=== PATIENT | male | born 1980 | race Caucasian/White ===

== ENCOUNTER 2019-12-05 07:49 | Outpatient (CLI) | payer OTHER, SELFPAY ==
[2019-12-05 08:04] LABS: Basophils Absolute Auto 0.04 K/mm3 (0.00-0.10); Basophils Percent Auto 0.4 % (0.0-1.0); Eosinophils Absolute Auto 0.21 K/mm3 (0.02-0.50); Eosinophils Percent Auto 2.3 % (1.0-6.0); Hematocrit 48.1 % (40.0-54.0); Hemoglobin 17.3 g/dL (14.0-18.0); Immature Granulocyte Absolute 0.09 K/mm3 (0.00-0.00); Lymphocytes Percent Auto 34.6 % (18.0-42.0); Mean Corpuscular Hemoglobin 33.5 pg (27.0-31.0); Mean Platelet Volume 10.8 fl (8.7-11.0); Monocytes Absolute Auto 0.83 K/mm3 (0.10-0.90); Neutrophils Absolute Auto 4.9 K/mm3 (1.7-7.2); Neutrophils Percent Auto 52.7 % (50.0-70.0); Platelet Count Result 158 K/mm3 (150-420); Red Blood Count 5.17 M/mm3 (4.70-6.10); Red Cell Distribution Width 11.1 % (11.6-14.4); White Blood Count 9.2 K/mm3 (4.8-10.8)
[2019-12-05 08:17] LABS: Hemoglobin A1C 9.1 % (<5.7)
[2019-12-05 08:22] LABS: Creatinine Urine 92.06 mg/dL (40-278); MALB Creatinine Ratio 213.6 mg/g (0-30); Microalbumin Urine Random 196.7 mg/L
[2019-12-05 09:42] LABS: Alanine Aminotransferase 65 U/L (16-63); Albumin Level 3.7 g/dL (3.4-5.0); Alkaline Phosphatase 90 U/L (46-116); Anion Gap 14.4 mmol/L (7-16); Aspartate Amino Transferase 38 U/L (15-37); Bilirubin,Total 0.4 mg/dL (0.00-1.00); Blood Urea Nitrogen 10 mg/dL (7-18); Calcium 9.3 mg/dL (8.5-10.1); Carbon Dioxide 29 mmol/L (21-32); Chloride 101 mmol/L (98-108); Cholesterol 225 mg/dL (0-200); Estimated Glomerular Filt Rate > 60; Glucose 277 mg/dL (70-99); HDL Direct 32 mg/dL (40-60); LDL Cholesterol Calculated 127 mg/dL (<130); Osmolality Calculated 299 mOsm/kg (285-295); Potassium 4.4 mmol/L (3.5-5.1); Sodium 140 mmol/L (136-145); Total Protein 7.6 g/dL (6.4-8.2); Triglycerides 329 mg/dL (0-150)
== END 2019-12-05 07:50 | disposition home or self-care (01) ==
PROVIDERS: PCP Nurse Practitioner Family; Visit Provider Nurse Practitioner Family
DX: E78.5 Hyperlipidemia, unspecified (principal); E11.59 Type 2 diabetes mellitus with other circulatory complications; I10 Essential (primary) hypertension; E11.69 Type 2 diabetes mellitus with other specified complication
CPT/HCPCS: 36415; 80053; 80061; 82043; 83036; 85025

== ENCOUNTER 2019-12-10 21:45 | Emergency (ER) | payer OTHER, SELFPAY ==
[2019-12-10 22:00] VITALS: BP 162/102; PULSE 81; RESP 16; TEMP 37.1; O2SAT 97
--- NOTE | 2019-12-10 22:03 | ED.GENADULT ---
HPI - General Adult General Chief complaint: Dental/Oral Stated complaint: abcess History of Present Illness HPI narrative: Justin is a 39M with a PMH of DMII, elevated liver enzymes, nicotine dependence, GERD, HTN, HLD and poor dentition with frequent infections that presented to the ED with dental pain. His upper right molars had hurt for a week but they became much worse over the last day and a half. He now cannot stand the pain and cannot eat. He has responded well to clindamycin in the past. No fevers, chills, N/V/D trouble breathing or swallowing. Related Data Home Medications Medication Instructions Recorded Confirmed blood sugar diagnostic #10 each 11/02/19 12/10/19 insulin syringe-needle U-100 0.5 #1 each 11/02/19 12/10/19 mL 30 gauge x 1/2 lancets 33 gauge #100 each 11/15/19 12/10/19 Allergies Allergy/AdvReac Type Severity Reaction Status Date / Time Sulfa (Sulfonamide Allergy Severe Anaphylaxis Verified 11/17/19 10:19 Antibiotics) amlodipine Allergy Mild unknown Verified 11/17/19 10:19 metformin AdvReac Severe abdominal Verified 11/17/19 10:19 pain Sulfonamides Allergy Intermediate anaphylaxis Uncoded 11/17/19 10:19 Review of Systems Constitutional: Constitutional: Reports no additional constitutional complaints, Denies chills and Denies fever(s) Eyes: Eyes: Reports no additional eye complaints ENT: Reports as per HPI Cardiovascular: Cardiovascular: Reports no additional cardiovascular complaints Respiratory: Respiratory: Reports no additional respiratory complaints Gastrointestinal: Gastrointestinal: Reports no additional gastrointestinal complaints Genitourinary: Genitourinary: Reports no additional male genitourinary complaints Musculoskeletal: Musculoskeletal: Reports no additional musculoskeletal complaints Integumentary/Breasts: Skin/Breast: Reports system reviewed and no additional complaints, except as docu Neurologic: Reports system reviewed and no additional complaints, except as documented Psychiatric: Psychiatric: Reports no additional psychiatric complaints Endocrine: Endocrine: Reports no additional endocrine complaints Hematologic/Lymphatic: Hematologic/Lymphatic: Reports no additional hematologic/lymphatic complaints Allergic/Immunologic: Allergic/Immunologic: Reports no additional allergic/immunologic complaints [facility] Past Medical History Medical History Alcohol dependence ESTEFANI (generalized anxiety disorder) GERD without esophagitis Hyperlipidemia associated with type 2 diabetes mellitus Hypertension associated with type 2 diabetes mellitus Microalbuminuria due to type 2 diabetes mellitus Nicotine dependence Obesity (BMI 30-39.9) Type 2 diabetes mellitus Surgical History Surgical History History of ankle surgery Right History of knee surgery Left Knee Tendon Repair Family History Family History Father Benign hypertension Osteoarthritis Mother Acute myocardial infarction Diabetes mellitus Hypothyroidism Hemochromatosis Mother Family history of type 2 diabetes mellitus Acute myocardial infarction Family history of hypothyroidism Father Hypertension Social History Social History Smoking packs per day: 1 Smoking cigarettes per day: 20.0 Years smoked: 15 Smoking pack-years: 15.00 Smoking status: Current every day smoker Tobacco type: cigarettes Alcohol intake: current Substance use: never Substance use type: does not use Additional living arrangements comments: Additional occupation/education comments: [employer] Gender identity (if verbalized by the patient): Male Spiritual care concerns: No Exam Const: General: no acute distress and alert Orientation/co
[2019-12-10] MEDS: CLINDAMYCIN HCL 150 MG CAP 600 MG PO (22:08)
--- NOTE | 2019-12-11 11:17 | PC.NURSE ---
RX CHANGED [facility] THEY DO NOT CARRY 450 MG. CHANGED TO 600 MG
== END 2019-12-10 22:11 | disposition home or self-care (01) ==
PROVIDERS: Emergency Provider Family Medicine; PCP Nurse Practitioner Family
DX: K08.89 Other specified disorders of teeth and supporting structures (principal)
CPT/HCPCS: 99283; A9270

== ENCOUNTER 2021-12-13 07:29 | Outpatient (CLI) | payer OTHER, SELFPAY ==
[2021-12-13 07:40] LABS: Basophils Absolute Auto 0.06 K/mm3 (0.00-0.10); Basophils Percent Auto 0.4 % (0.0-1.0); Eosinophils Absolute Auto 0.37 K/mm3 (0.02-0.50); Eosinophils Percent Auto 2.6 % (1.0-6.0); Hematocrit 47.3 % (40.0-54.0); Hemoglobin 16.6 g/dL (14.0-18.0); Immature Granulocyte Absolute 0.11 K/mm3 (0.00-0.00); Immature Granulocyte Percent A 0.8 % (0.0-0.0); Lymphocytes Absolute Auto 3.84 K/mm3 (1.10-4.50); Lymphocytes Percent Auto 27.5 % (18.0-42.0); Mean Corpuscular HGB Conc 35.1 g/dL (32.0-36.0); Mean Corpuscular Hemoglobin 34.2 pg (27.0-31.0); Mean Corpuscular Volume 97.3 fL (78.0-102.0); Mean Platelet Volume 11.1 fl (8.7-11.0); Monocytes Absolute Auto 0.99 K/mm3 (0.10-0.90); Monocytes Percent Auto 7.1 % (2.0-11.0); Neutrophils Absolute Auto 8.6 K/mm3 (1.7-7.2); Neutrophils Percent Auto 61.6 % (50.0-70.0); Platelet Count Result 165 K/mm3 (150-420); Red Blood Count 4.86 M/mm3 (4.70-6.10); Red Cell Distribution Width 11.5 % (11.6-14.4)
[2021-12-13 08:01] LABS: Hemoglobin A1C 6.9 % (<5.7)
[2021-12-13 08:04] LABS: Alanine Aminotransferase 36 U/L (16-63); Albumin Level 3.9 g/dL (3.4-5.0); Alkaline Phosphatase 88 U/L (46-116); Anion Gap 8 mmol/L (8-16); Aspartate Amino Transferase 19 U/L (15-37); Bilirubin,Total 0.6 mg/dL (0.00-1.00); Blood Urea Nitrogen 17 mg/dL (7-18); Calcium 9.4 mg/dL (8.5-10.1); Carbon Dioxide 29 mmol/L (21-32); Chloride 102 mmol/L (98-108); Cholesterol 216 mg/dL (0-200); Estimated Glomerular Filt Rate > 60; Glucose 132 mg/dL (70-99); HDL Direct 28 mg/dL (40-60); LDL Cholesterol Calculated 111 mg/dL (<130); Osmolality Calculated 291 mOsm/kg (285-295); Potassium 4.1 mmol/L (3.5-5.1); Sodium 139 mmol/L (136-145); Total Protein 8.2 g/dL (6.4-8.2); Triglycerides 387 mg/dL (0-150)
[2021-12-13 08:11] LABS: Creatinine Urine 192.67 mg/dL (40-278)
[2021-12-13 08:15] LABS: MALB Creatinine Ratio 122.4 mg/g (0-30)
[2021-12-17 14:20] LABS: Vitamin D 25 Hydroxy 22 ng/mL (30-100)
== END 2021-12-13 07:30 | disposition home or self-care (01) ==
LOC: CHSLAB 07:30
PROVIDERS: PCP Nurse Practitioner Family; Visit Provider Nurse Practitioner Family
DX: Z79.899 Other long term (current) drug therapy (principal); E11.59 Type 2 diabetes mellitus with other circulatory complications; I10 Essential (primary) hypertension; E78.5 Hyperlipidemia, unspecified
CPT/HCPCS: 36415; 80053; 80061; 82043; 82306; 83036; 85025

== ENCOUNTER 2024-12-29 15:16 | Outpatient (CLI) | payer BC, SELFPAY ==
--- OUTSIDE RECORDS SUMMARY | 2024-12-29 15:19 | XMS_ITS | Clinical Summary ---
Author Organization [facility] Address [facility] [place] [address] Care Team Providers Care Construction Sales Manager Name Role Phone Unavailable Primary Care Provider Unavailabl e Social History Tobacco Use Types Packs/Day Years Used Date Smoking Tobacco: Never Assessed Sex and Gender Information Value Date Recorded Sex Assigned at Not on file Legal Sex Male 1:42 AM CDT Gender Identity Not on file Sexual Orientation Not on file Plan of Treatment Health Maintenance Due Date Last Done Comments Colorectal Cancer Screening Colonoscopy (10 Years) 1978 Annual Physical 1981 Hepatitis C 1996 DTaP, Tdap and Td Vaccines ( 1 - Tdap) 1997 Hepatitis B Vaccines (1 of 3 - 19+ 3-dose series) 1997 COVID-19 Vaccine (2023-2 5 season) 2024 Meningococcal B Vaccine Aged Out No l onger eligible based on patient's age to complete this topic Meningococcal Vaccine Aged Out No courtney malgorzata eligible based on patient's age to complete this topic Pneumococcal Vaccine: Pediat rics (0 to 5 Years) and At-Risk Patients (6 to 49 Years) Aged Out No longer eligible b ased on patient's age to complete this topic RSV Immunizations Under 20 Months Aged Out No longer eligible based on patient's age to complete this topic
[2024-12-29 15:32] LABS: Hematocrit 44.6 % (40.0-54.0); Hemoglobin 15.7 g/dL (14.0-18.0); Immature Granulocyte Percent A 0.6 % (0.0-0.0); Lymphocytes Absolute Auto 3.36 K/mm3 (1.10-4.50); Mean Corpuscular HGB Conc 35.2 g/dL (32-36); Mean Corpuscular Hemoglobin 33.3 pg (27.0-31.0); Mean Corpuscular Volume 94.7 fL (78.0-102.0); Nucleated Red Blood Cells Absolute Auto 0.00 K/mm3 (0.00-0.00); Nucleated Red Blood Cells Perc 0.0 % (0-0.0); Platelet Count Result 149 K/mm3 (150-420); Red Blood Count 4.71 M/mm3 (4.70-6.10); White Blood Count 10.8 K/mm3 (4.8-10.8)
[2024-12-29 16:26] LABS: Alanine Aminotransferase 43 U/L (6-50); Albumin Level 4.5 g/dL (3.5-5.1); Alkaline Phosphatase 82 U/L (38-126); Anion Gap 7 mmol/L (4-12); Aspartate Amino Transferase 48 U/L (17-59); Bilirubin,Total 1.0 mg/dL (0.2-1.3); Blood Urea Nitrogen 24 mg/dL (9-20); Calcium 9.6 mg/dL (8.4-10.2); Carbon Dioxide 28 mmol/L (22-30); Chloride 100 mmol/L (98-107); Cholesterol 286 mg/dL (0-200); Estimated Glomerular Filt Rate > 60; Glucose 205 mg/dL (65-110); HDL Direct 51 mg/dL; Iron 132 ug/dL (49-181); Osmolality Calculated 290 mOsm/kg (285-295); Potassium 5.0 mmol/L (3.4-5.0); Sodium 135 mmol/L (137-145); Total Protein 7.7 g/dL (6.3-8.2); Triglycerides 274 mg/dL (<150)
[2024-12-29 16:27] LABS: Hemoglobin A1C 9.2 % (<5.7)
[2024-12-29 16:37] LABS: Percent Iron Saturation 37 % (20-50)
== END 2024-12-29 15:17 | disposition home or self-care (01) ==
LOC: CHSLAB 15:17
PROVIDERS: PCP Nurse Practitioner Family; Visit Provider Nurse Practitioner Family
DX: E55.9 Vitamin D deficiency, unspecified (principal); E11.59 Type 2 diabetes mellitus with other circulatory complications; I10 Essential (primary) hypertension; Z13.6 Encounter for screening for cardiovascular disorders; E11.69 Type 2 diabetes mellitus with other specified complication; E78.5 Hyperlipidemia, unspecified; R53.83 Other fatigue; Z79.899 Other long term (current) drug therapy
CPT/HCPCS: 36415; 80053; 80061; 82306; 83036; 83540; 83550; 85025

== ENCOUNTER 2024-12-30 11:48 | Outpatient (NON) | payer BC, SELFPAY ==
--- OUTSIDE RECORDS SUMMARY | 2024-12-30 11:52 | XMS_ITS | Clinical Summary ---
Author Organization [facility] Address [facility] [place] [address] Care Team Providers Care Relay Motorman Name Role Phone Unavailable Primary Care Provider [...]
[2024-12-30 13:15] LABS: MALB Creatinine Ratio 99.1 mg/g (0-30)
== END 2024-12-30 11:49 | disposition home or self-care (01) ==
LOC: CHSLAB 11:49
PROVIDERS: PCP Nurse Practitioner Family; Visit Provider Nurse Practitioner Family
DX: R80.9 Proteinuria, unspecified (principal); E11.29 Type 2 diabetes mellitus with other diabetic kidney complication
CPT/HCPCS: 82043

== ENCOUNTER 2025-01-09 10:08 | Outpatient (CLI) | payer BC, SELFPAY ==
--- NOTE | ~2025-01-09 | CT_ITS ---
CLINICAL INDICATION: . COMPARISON: . TECHNIQUE: Computed tomography angiography (CTA) of the abdominal aorta with runoff was performed wit h 100 mL Omnipaque-350 intravenous contrast timed to evaluate the abdominal aorta, mesenteric and per ipheral lower extremity vasculature. Coronal maximum intensity projection 3D-reconstructions were created by the technologist. The dose-length product (DLP) was 1743.98 mGy-cm. Automated exposure control and iterative reconstruction technique were employed. FINDINGS/OBSERVATIONS: Visualized lower thorax: The bilateral lung bases are clear. The heart is of normal size without pericardial effusion. A small hiatal hernia is present. Liver: The liver demonstrates homogeneously decreased enhancement consistent with fatty infiltration and is not enlarged. Gallbladder and biliary system: The gallbladder is only minimally distended, with dependent calcified stones. Pancreas: The pancreas enhances homogeneously without ductal dilatation. Spleen: The spleen enhances homogeneously without enlargement. Kidneys: The bilateral kidneys enhance symmetrically without hydronephrosis or obstructing renal calculi. Pararenal cysts detected bilaterally. Adrenal glands: Unremarkable. Gastrointestinal tract: Fecal stasis within the colon. Appendix: The air-filled appendix is of normal caliber (axial series, image 20 through 128). Vasculature: The visualized portion of the thoracic aorta is nonaneurysmal. The abdominal aorta is nonaneurysmal. A 50% stenosis is identified within the distal abdominal aorta just above the level of bifurcation wi th mural thrombus. The celiac origin is patent and demonstrates conventional anatomy. The superior mesenteric artery is also patent, with only mild atherosclerosis. The bilateral renal arteries are patent, and otherwise unremarkable. The right common iliac artery is patent without significant calcified atherosclerosis. The right internal and external iliac arteries are densely calcified, without aneurysmal dilatation o r significant stenosis. The right common femoral artery is patent demonstrating calcified mural thrombus, without aneurysmal dilatation or significant stenosis. The right superficial femoral artery and profunda femoral artery are both patent without, aneurysmal dilatation or dissection. The right popliteal artery is diminutive but patent, demonstrating densely calcified atherosclerotic disease. Poor opacification of the arterial vascularity within the calf, likely secondary to bolus timing. Caleb nt opacification of 2 vessel runoff identified within the right calf with faint single vessel runoff to the right foot. The left common iliac artery is patent without calcified atherosclerosis. The left internal and external iliac arteries are patent, without aneurysmal dilatation or significan t stenosis. The left common femoral artery is patent without aneurysmal dilatation or significant stenosis. The left superficial femoral artery and profunda femoral artery are both patent at their origins. The left superficial femoral artery demonstrates a high-grade (70%) stenosis within the distal thigh with reconstitution into the left popliteal artery. Redemonstration of poor opacification of the arterial vascularity below the knee, likely secondary to bolus timing. Faint diminutive three-vessel runoff is identified within the left calf with faint single vessel runo ff into the left foot. Lymph nodes: No pathologically enlarged or morphologically suspicious lymph nodes within the retroperitoneum, or t he root of the mesentery. Pelvic structures: The bladder is only minimally distended. The prostate gland is not enlarged. Body wall and musculoskeletal: Age-appropriate degenerative disease within the lower thoracic and lumbosacral spines. IMPRESSION: 50% stenosis of the distal abdominal aorta at the level of the bifurcation 70% stenosis of the distal left superficial femoral artery. Faint diminutive two-vessel runoff in the right calf with single vessel runoff into the right foot. Faint diminutive 3 vessel runoff in the left calf with faint single vessel runoff the left foot. Cholelithiasis. Reviewed, dictated and finalized at location A. IMPRESSION: 50% stenosis of the distal abdominal aorta at the level of the bifurcation 70% stenosis of the distal left superficial femoral artery. Faint diminutive two-vessel runoff in the right calf with single vessel runoff into the right foot. Faint diminutive 3 vessel runoff in the left calf with faint single vessel runo ff the left foot. Cholelithiasis.
--- OUTSIDE RECORDS SUMMARY | 2025-01-09 10:36 | XMS_ITS | Clinical Summary ---
Author Organization [facility] Address [facility] [place] [address] Care Team Providers Care Drywall Taper Name Role Phone Unavailable Primary Care Provider [...]
== END 2025-01-09 10:09 | disposition home or self-care (01) ==
LOC: CHSIMG 10:09
PROVIDERS: PCP Nurse Practitioner Family; Visit Provider Nurse Practitioner Family
DX: R20.0 Anesthesia of skin (principal); R20.2 Paresthesia of skin; R09.89 Other specified symptoms and signs involving the circulatory and respiratory systems; I70.0 Atherosclerosis of aorta; I70.202 Unspecified atherosclerosis of native arteries of extremities, left leg; K80.20 Calculus of gallbladder without cholecystitis without obstruction
CPT/HCPCS: 75635; Q9967